=== PATIENT | male | born 2000 | race Caucasian/White ===

== ENCOUNTER 2023-12-13 22:38 | Emergency (ER) | payer OTHER, SELFPAY ==
[2023-12-13] VITALS (7 sets, daily range): BP systolic 117–145; BP diastolic 73–94; PULSE 82–105; RESP 14–25; TEMP 36.6–36.7; O2SAT 97–100
--- NOTE | 2023-12-13 22:50 | EDS_ITS ---
HPI History of Present Illness Chief Complaint: Lower Extremity Injury Detail of Chief Complaint: Injury to left ankle Informant: patient Narrative Narrative: Patient presents the emergency department complaint of injury to the left ankle that occurred prior arrival to emergency department. Patient states he was playing volleyball when he landed with his left foot on somebody else's foot and twisted the ankle. Patient unable to bear weight and there is obvious deformity. He has no medical history otherwise. Denies any other injuries. PFSH PFSH Medical History no medical history Home Medications hydrocodone-acetaminophen 5-325mg 5mg-325mg 1 tab PO Q4H PRN PRN Pain 2 days #15 TABLETS 12/13/23 [Rx Last Taken Unknown] Allergy/AdvReac Type Severity Reaction Status Date / Time No Known Allergies Allergy Verified 12/13/23 22:39 Social History Smoking Status: Never smoker ROS ROS ED Review of Systems ROS Unobtainable: other Constitutional Constitutional ED: Reports lethargy; Denies chills, fever(s), sweats or weight loss Eyes Eyes: Denies blurry vision, change in vision or diplopia ENT ENT ED: Denies rhinorrhea or sore throat Cardiovascular Cardiovascular: Denies chest pain, orthopnea or racing heartbeat Respiratory/Chest Respiratory/Chest: Denies cough, dyspnea, dyspnea on exertion, orthopnea or sputum Gastrointestinal Gastrointestinal: Denies abdominal pain, diarrhea, nausea or vomiting Genitourinary Genitourinary ED: Denies dysuria, hematuria or urinary frequency Musculoskeletal Musculoskeletal: Reports other Details: Left ankle pain/injury ; Denies arthralgias, back pain, myalgias or neck pain Integumentary Denies abscess, Abrasions or rash Neurologic Neurologic: Denies headache(s) or weakness Psychiatric Psychiatric: Denies anxiety, depression or suicidal thoughts Endocrine Endocrinology: Denies polydipsia, polyphagia or polyuria Hematologic/Lymphatic Hematologic/Lymphatic: Denies easy bleeding, easy bruising or lymphadenopathy Allergic/Immunologic Allergic/Immunologic ED: Denies mouth swelling, tongue swelling or urticaria EXAM Physical Exam Const Vital Signs: 12/13/23 22:39 12/13/23 23:33 12/13/23 23:33 Temperature 98.0 F 97.9 F Temperature Source Temporal Pulse Rate 95 105 H Pulse Rate [1 (Initial Baseline)] 104 H Pulse Rate [2] 99 Pulse Rate [3] 87 Pulse Rate [4] 84 Pulse Rate [5] 82 Respiratory Rate 18 17 Respiratory Rate [1 (Initial Baseline)] 17 Respiratory Rate [2] 14 Respiratory Rate [3] 15 Respiratory Rate [4] 19 H Respiratory Rate [5] 25 H Blood Pressure 145/86 H 140/94 H Blood Pressure [1 (Initial Baseline)] 140/94 H Blood Pressure [2] 120/81 H Blood Pressure [3] 117/73 Blood Pressure [4] 122/80 H Blood Pressure [5] 117/75 Blood Pressure Mean 105 Pulse Ox 98 100 Oxygen Delivery Method Room Air Room Air Oxygen Delivery Method [1 (Initial Baseline)] Room Air Oxygen Delivery Method [2] Room Air Oxygen Delivery Method [3] Room Air Oxygen Delivery Method [4] Room Air Oxygen Delivery Method [5] Room Air 12/13/23 23:35 12/13/23 23:40 12/13/23 23:45 Temperature Temperature Source Pulse Rate Pulse Rate [1 (Initial Baseline)] Pulse Rate [2] Pulse Rate [3] Pulse Rate [4] Pulse Rate [5] Respiratory Rate Respiratory Rate [1 (Initial Baseline)] Respiratory Rate [2] Respiratory Rate [3] Respiratory Rate [4] Respiratory Rate [5] Blood Pressure Blood Pressure [1 (Initial Baseline)] Blood Pressure [2] Blood Pressure [3] Blood Pressure [4] Blood Pressure [5] Blood Pressure Mean Pulse Ox Oxygen Delivery Method Room Air Room Air Room Air Oxygen Delivery Method [1 (Initial Baseline)] Oxygen Delivery Method [2] Oxygen Delivery Method [3] Oxygen Delivery Method [4] Oxygen Delivery Method [5] 12/13/23 23:50 12/13/23 23:55 12/14/23 00:31 Temperature 98.0 F Temperature Source Pulse Rate 81 Pulse Rate [1 (Initial Baseline)] Pulse Rate [2] Pulse Rate [3] Pulse Rate [4] Pulse Rate [5] Respiratory Rate 16 Respiratory Rate [1 (Initial Baseline)] Respiratory Rate [2] Respiratory Rate [3] Respiratory Rate [4] Respiratory Rate [5] Blood Pressure 124/75 H Blood Pressure [1 (Initial Baseline)] Blood Pressure [2] Blood Pressure [3] Blood Pressure [4] Blood Pressure [5] Blood Pressure Mean 91 Pulse Ox 99 Oxygen Delivery Method Room Air Room Air Oxygen Delivery Method [1 (Initial Baseline)] Oxygen Delivery Method [2] Oxygen Delivery Method [3] Oxygen Delivery Method [4] Oxygen Delivery Method [5] Positive well nourished and well developed General Appearance ED: well developed and NAD HEENT Reports TM's clear and moist mucous membranes normocephalic and atraumatic; Negative for trauma or tenderness Tympanic Membrane ED: Yes TM's clear Eyes PERRL and EOMs intact bilaterally General Eye ED: Negative for pale conjunctiva or scleral icterus Neck no lymphadenopathy, supple and no JVD General: Negative for tenderness Chest Wall inspection of chest normal and palpation of chest normal Chest: Negative for tenderness Resp normal respiratory effort and clear to auscultation bilaterally Effort and Inspection: Negative for respiratory distress or pain with movement Auscultation: Negative for rhonchi, wheezes or diminished lung sounds Cardio regular rate, regular rhythm, S1 normal heart sound, S2 normal heart sound and no murmurs Peripheral Pulses: pulses 2+ throughout GI normal to inspection, nondistended, normoactive bowel sounds, soft to palpation, non-tender, non-distended and no masses Back/Spine no CVA tenderness and no thoracic nor lumbar tenderness Extremity normal to inspection Extremity Narrative: Left lower extremity-patient does have obvious deformity with suspected dislocation of the left ankle. Neurovascularly intact distally with normal dorsal pedal and posterior tibial pulses. Patient able to wiggle his toes. No broken skin noted. Minimal discomfort at the proximal fibular head. General Extremety ED: Negative for edema General Extremity: Negative for edema Neuro oriented x3, CN's II-XII intact bilaterally, no sensory deficits noted and gait normal Sensorium / Orientation: awake, alert, oriented to person, oriented to place and oriented to time Motor Exam: strength 5/5 throughout and strength abnormal Psych mental status grossly normal Skin no rashes or lesions noted and no wounds MDM MDM MDM Narrative Medical decision making narrative: Patient presents with obvious dislocation and deformity to the left foot/ankle. X-rays obtained showed a subtalar dislocation. Patient agreed to procedural sedation with propofol. IV line was established. Patient was given 180 mg of propofol with good sedation. With gentle traction I was able to reduce the dislocation. Postreduction films obtained showed good reduction. Do not appreciate any fractures. Patient was placed in a posterior splint. He will be given crutches and pain medication and referred to foot and ankle specialist for follow-up. Patient placed in a posterior splint. Radiography Diagnostic Testing: Clinical Impression(s) from Imaging Studies Ankle X-Ray 12/13/23 23:00 IMPRESSION: Dislocation at the talocalcaneal joint with medial rotation/displacement of the foot. Electronically Signed: Sherie Schulte MD at 23:57 EST , Tibia/Fibula X-Ray 12/13/23 23:00 IMPRESSION: No proximal fracture. Ankle not completely included. Electronically Signed: Sherie Schulte MD at 23:58 EST Reading Location ID and State: [employer] / [place] [employer] , Service support , Ankle X-Ray 12/13/23 23:41 IMPRESSION: Postreduction of earlier talocalcaneal dislocation. Distortion of the subtalar joint lateral view possibly positional. No definite fracture identified Electronically Signed: Sherie Schulte MD at 0:16 EST Reading Location ID and State: [id number] / [place] [employer] , Service support , Three-view x-rays left ankle obtained showed a subtalar dislocation with no obvious fracture on my interpretation. 2 view x-rays of the left tib-fib obtained showed again the subtalar disloca tions and no other fractures. Three-view x-rays left ankle obtained postreduction interpreted by myself as good reduction of the subtalar dislocation with no obvious fractures. Procedures Procedural Sedation 1 (Initial Baseline): Consent Signed: Yes Any Problems With Anesthesia: No You/Your family experience fever (hyperthermia) w/anesthesia: No Sedation medication: Propofol Dose: 180 Route: IV Maliampati Score: Class I ASA Classification: I (Healthy no medical problems) Comment:: Total sedation time 15 minutes. Discharge Plan Triage Chief Complaint: Lower Extremity Injury ED Provider: Monserrat Maher Dx/Rx/DC Orders Clinical Impression: Dislocation of left foot Instructions: ED Ankle Dislocation (Adult) Prescriptions: New hydrocodone-acetaminophen [hydrocodone-acetaminophen] 5-325 mg tablet 1 tab PO Q4H PRN PRN (Reason: Pain) 2 Days Qty: 15 0RF Primary Care Provider: Ajay Horn Referrals: Ace Charles DPM [Med Staff - Active Staff] - 3-5 Days NOT,DEFINED [Non-Staff] - Disposition Disposition: Home, Self Care Discharge Date/Time: 12/14/23 00:32
--- NOTE | 2023-12-13 23:00 | RAD_ITS ---
INDICATION: injury EXAMINATION/TECHNIQUE: X-RAY - LEFT XR Ankle Min 3 Views 3 VIEWS COMPARISON: FINDINGS: 3 images. Suboptimal positioning due to deformity. Lateral view did not include the ankle. There is dislocation at the talocalcaneal joint, with the foot/calcaneus displaced medially in relation to the talus, and rotated. The tibiotalar joint appears maintained on the AP view. Lateral view is limited. Questionable fragment posterior to the distal tibia on the lateral view but this is not completely assessed. Evaluation for fractures is limited due to overlap. RAD/Ankle min 3 Views IMPRESSION: Dislocation at the talocalcaneal joint with medial rotation/displacement of the foot. Electronically Signed: Sherie Schulte MD at 23:57 EST ,
--- NOTE | 2023-12-13 23:00 | RAD_ITS ---
INDICATION: injury EXAMINATION/TECHNIQUE: X-RAY - LEFT XR Tibia/Fibula 2 Views 2 VIEWS COMPARISON: FINDINGS: 2 Images. The lateral view did not include the ankle. The AP view only partially included the ankle. No proximal fracture identified. No dislocation at the knee. RAD/Tibia & Fibula 2 Views IMPRESSION: No proximal fracture. Ankle not completely included. Electronically Signed: Sherie Schulte MD at 23:58 EST ,
[2023-12-13] MEDS: Propofol 200 MG/20 ML Vial IV BOLUS (23:32)
--- NOTE | 2023-12-13 23:41 | RAD_ITS ---
INDICATION: post reduction EXAMINATION/TECHNIQUE: X-RAY - LEFT XR Ankle Min 3 Views 3 VIEWS COMPARISON: Left ankle x-rays earlier same day FINDINGS: BONES: Partial splint in place. No definite fracture demonstrated. The small density posterior to the distal tibia on the earlier study is not well visualized and may be obscured by overlying structures. JOINTS: No dislocation. Slight distortion on the lateral view at the subtalar joint level may be related to positioning/rotation. SOFT TISSUES: Diffuse swelling especially overlying the lateral malleolus. RAD/Ankle min 3 Views IMPRESSION: Postreduction of earlier talocalcaneal dislocation. Distortion of the subtalar joint lateral view possibly positional. No definite fracture identified Electronically Signed: Sherie Schulte MD at 0:16 EST ,
[2023-12-14 00:31] VITALS: BP 124/75; PULSE 81; RESP 16; TEMP 36.7; O2SAT 99
== END 2023-12-14 00:32 | disposition home or self-care (01) ==
PROVIDERS: Emergency Provider Emergency Medicine; PCP Family Medicine; Visit Provider Emergency Medicine
DX: S93.335A Other dislocation of left foot, initial encounter (principal); X50.1XXA Overexertion from prolonged static or awkward postures, initial encounter; Y93.68 Activity, volleyball (beach) (court); Y99.8 Other external cause status
CPT/HCPCS: 28540; 73590; 73610; 99156; 99283; J7030; A4216